=== PATIENT | male | born 1995 | race Two or more races ===

== ENCOUNTER 2018-05-05 17:41 | Emergency (ER) | payer OTHER ==
--- NOTE | 2018-05-05 21:03 | ED Physician Documentation ---
PD HPI MALE - Stated complaint Stated Complaint: MALE - Chief complaint Chief Complaint: Abd Pain - History obtained from History obtained from: Patient - History of Present Illness Timing - onset: Today Timing - details: Abrupt onset Associated symptoms: Testiclar pain (went to sit down in chair and felt a pop feeling left testicle with pain. No lifting. Had been feeling okay prior. Has pain with movement of the lest scrotum, walking and touching.). No: Dysuria, Urinary frequency, Scrotal swelling PD HPI MALE CONTRIB FACTORS: No: Exposed to STD Similar symptoms before: Has not had sx before Recently seen: Not recently seen Review of Systems Constitutional: denies: Fever, Chills Nose: denies: Rhinorrhea / runny nose, Congestion Throat: denies: Oral lesions / sores, Sore throat GI: denies: Abdominal Pain, Nausea, Vomiting, Diarrhea : denies: Dysuria, Frequency, Discharge Skin: denies: Rash, Lesions PD PAST MEDICAL HISTORY - Past Medical History Cardiovascular: None Respiratory: None : None - Present Medications Home Medications: Ambulatory Orders Medication Instructions Recorded Confirmed Hydrocodone/Acetaminophen [[place] 1 each PO Q6H PRN #15 tablet 05/05/18 5-325 Tablet] Naproxen 375 mg PO BID #20 tablet 05/05/18 - Allergies Allergies/Adverse Reactions: Allergies Allergy/AdvReac Type Severity Reaction Status Date / Time amoxicillin Allergy Unknown Verified 05/05/18 17:59 Penicillins Allergy Unknown Verified 05/05/18 17:59 PD ED PE NORMAL - Vitals Vital signs reviewed: Yes - General General: Alert and oriented X 3, Well developed/nourished, Other (appears in pain with walking and scrotal movement.) - Cardiac Cardiac: RRR, No murmur - Respiratory Respiratory: Clear bilaterally - Abdomen Abdomen: Normal bowel sounds, Soft, Non tender, Non distended - Male Male : Other (sanding position, he has right testicle lower than left, but they have normal lie position. Tenderness left testicle to palpation. No scrotal swelling noted. Cremaster reflex both sides present, with pain elicited on the left. There is tenderness above the testicle as well on the left. No obvious masses. ) - Rectal Rectal: Deferred Results - Vitals Vitals: Oxygen O2 Source Room air - Rads (name of study) testicle U/S Radiology: Prelim report reviewed (normal flow both sides. no masses nor swelling. ) PD MEDICAL DECISION MAKING - ED course Complexity details: re-evaluated patient (U/S showed flow both testicles and no masses. ), considered differential (abrupt onset pain as he sat down, so consid er strain of the supporting structures with concern for torsion. He does have cremaster reflex but causes pain. Has normal lie on exam. ), d/w patient Departure - Departure Disposition: 01 Home, Self Care Clinical Impression: Testicular pain, left Condition: Stable Record reviewed to determine appropriate education?: Yes Instructions: ED Testicular Pain [facility] Follow-Up: [facility] [Provider Group] Prescriptions: Hydrocodone/Acetaminophen [[place] 5-325 Tablet] 1 each PO Q6H PRN #15 tablet PRN Reason: Pain Naproxen 375 mg PO BID #20 tablet Comments: I presume you have a strain and inflammation of the supporting structures for the testicle such as the epididymis. The ultrasound did not show any acute abnormality and did show good blood flow to both testicles. Use some anti- inflammatories such as naproxen or ibuprofen twice daily for the next several days to week. Add Tylenol or hydrocodone if needed for pain. Minimal activity for the next couple of days. Some scrotal support may be helpful. Follow-up with your primary in the next 1-2 days if not improved. Forms: Activity restrictions Discharge Date/Time: 05/06/18 00:30
[2018-05-05] MEDS ORDERED: KETOROLAC 60 MG/2 ML VIAL IVP STA (21:31)
[2018-05-05] MEDS ORDERED: ONDANSETRON 4 MG/2 ML VIAL IVP STA (21:31)
[2018-05-05] MEDS ORDERED: SODIUM CHLORIDE 0.9% 1,000 ML IV ONE (21:31)
[2018-05-05] MEDS ORDERED: MORPHINE 10 MG/ML VIAL IVP STA (21:31)
[2018-05-05] MEDS ORDERED: HYDROcod/ACET 5/325 Prepack 4 PO STA (23:58)
--- NOTE | 2018-05-05 23:58 | Ultrasound Report ---
Reason: left testicle abrupt pain today Procedure Date: 05/05/2018 Accession Number: [id number] / [id number] Procedure: US - Testicle w/Doppler Limited CPT Code: FULL RESULT: EXAM: SCROTAL ULTRASOUND EXAM DATE: 05/05/2018 11:17 PM. CLINICAL HISTORY: Abrupt left testicle pain today. COMPARISON: None. TECHNIQUE: Real-time scanning was performed with static images obtained. Color-flow images were utilized. FINDINGS: Right: Testis: 4.3 x 2.5 x 2.6 cm. Normal size and echotexture. No mass, calcification, or abnormal blood flow. Epididymis: Normal size and echotexture. No solid-appearing mass or abnormal blood flow. Incidental 3 mm cyst. Hydrocele: None. Varicocele: None. Left: Testis: 3.7 x 2.0 x 3 cm. Normal size and echotexture. No mass, calcification, or abnormal blood flow. Epididymis: Normal size and echotexture. No solid-appearing mass or abnormal blood flow. Hydrocele: Trace. Varicocele: None. Other: None. IMPRESSION: Negative scrotal ultrasound. RADIA
[2018-05-06 00:29] VITALS: BP 131/68
== END 2018-05-06 00:30 | disposition home or self-care (01) ==
LOC: ED 17:41
DX: N50.812 Left testicular pain (principal)
CPT/HCPCS: 76870; 93976; 96361; 96374; 96375; 99283; 99284

== ENCOUNTER 2018-05-12 11:10 | Emergency (ER) | payer OTHER ==
--- NOTE | 2018-05-12 12:36 | ED Physician Documentation ---
PD HPI MALE - Stated complaint Stated Complaint: L HIP PX - Chief complaint Chief Complaint: General - History obtained from History obtained from: Patient - History of Present Illness Timing - onset: How many weeks ago (1) Timing - duration: Weeks (1) Timing - details: Abrupt onset, Still present, Waxing and waning Associated symptoms: Testiclar pain, Abdominal pain. No: Dysuria, Urinary frequency, Hematuria, Discharge, Genital sore / lesion PD HPI MALE CONTRIB FACTORS: Sexually active Recently seen: Clinic (He says he was seen in [facility] yesterday and had repeat U/S which was normal again (small varicocele per patient). Still having the pain in testicle, and now upper scrotum and into inguinal area.), Emergency Dept (seen a week go after onset with normal UA and testicular U/S.) Review of Systems Constitutional: denies: Fever, Chills Throat: denies: Sore throat GI: denies: Nausea, Vomiting, Diarrhea : denies: Dysuria, Frequency, Discharge Skin: denies: Rash, Lesions PD PAST MEDICAL HISTORY - Past Medical History Cardiovascular: None Respiratory: None : None - Past Surgical History Past Surgical History: No - Present Medications Home Medications: Ambulatory Orders Medication Instructions Recorded Confirmed Hydrocodone/Acetaminophen [[place] 1 each PO Q6H PRN #15 tablet 05/05/18 5-325 Tablet] Naproxen 375 mg PO BID #20 tablet 05/05/18 Doxycycline Hyclate 100 mg PO BID #20 capsule 05/12/18 Naproxen 375 mg PO BID #20 tablet 05/12/18 Tramadol HCl 50 mg PO Q6H PRN #15 tablet 05/12/18 - Allergies Allergies/Adverse Reactions: Allergies Allergy/AdvReac Type Severity Reaction Status Date / Time amoxicillin Allergy Unknown Verified 05/12/18 12:41 Penicillins Allergy Unknown Verified 05/12/18 12:41 - Social History Does the pt smoke?: No Smoking Status: Never smoker Does the pt drink ETOH?: No Does the pt have substance abuse?: No - Immunizations Immunizations are current?: Yes - POLST Patient has POLST: No PD ED PE NORMAL - Vitals Vital signs reviewed: Yes - General General: Alert and oriented X 3, Well developed/nourished - Abdomen Abdomen: Soft, Non tender - Male Male : Other (normal lie with right testicle lower. Cremaster reflex present and causes some pain. Posterior testicle and up epididymal area with some tenderness. Anterior testicle not tender. Mild inguinal lymph node, slight tender. No rash nor sores. Penis and meatus are normal. ) - Rectal Rectal: Deferred - Back Back: No CVA TTP Results - Vitals Vitals: Vital Signs - 24 hr 05/12/18 05/12/18 11:21 14:08 Temperature 36.8 C 36.7 C Heart Rate 58 L 60 Respiratory 16 16 Rate Blood Pressure 121/64 118/60 O2 Saturation 99 99 Oxygen O2 Source Room air PD MEDICAL DECISION MAKING - ED course Complexity details: reviewed old records, considered differential (has had 2 U/Ss with normal flow. Initial presentation a week ago was abrupt with sitting down so presumed strain of structures. Tender along epididymis now and with small inguinal node. So can treat as possible infectious and continue NSAIDs. ), d/w patient Departure - Departure Disposition: 01 Home, Self Care Clinical Impression: Testicular pain, left, Epididymitis, left Condition: Stable Record reviewed to determine appropriate education?: Yes Instructions: ED Epididymitis Follow-Up: [facility] [Provider Group] Prescriptions: Doxycycline Hyclate 100 mg PO BID #20 capsule Naproxen 375 mg PO BID #20 tablet Tramadol HCl 50 mg PO Q6H PRN #15 tablet PRN Reason: Pain Comments: There is more epididymal tenderness today compared to the other day. We can repeat the anti-inflammatories and have a different pain medicine. I would add antibiotic to doxycycline twice daily for 10 days for potential infection. Rest for today and tomorrow. Recheck if not improved over the next few days. Forms: Activity restrictions Discharge Date/Time: 05/12/18 14:08
[2018-05-12] MEDS: DOXYCYCLINE 100 MG TABLET PO STA (13:21)
[2018-05-12] MEDS: NAPROXEN 250 MG TABLET PO STA (13:21)
[2018-05-12] MEDS: ACETAMINOPHEN 325 MG TABLET PO STA (13:21)
[2018-05-12 14:09] VITALS: BP 118/60
== END 2018-05-12 14:08 | disposition home or self-care (01) ==
LOC: ED 11:10
DX: N45.1 Epididymitis (principal)
CPT/HCPCS: 99283

== ENCOUNTER 2020-03-10 10:03 | Outpatient (CLI) | payer OTHER ==
[2020-03-10 10:59] VITALS: BP 118/68
--- NOTE | 2020-03-10 10:59 | SLEEP CARE CONSULTATION ---
Information from patient questionnaire entered by Renae Mcguire. I have reviewed and concur with the information entered by Renae Mcguire. This document represents the service I personally performed and the decisions made by me, Chey Ashby ARNP. History of Present Illness Service Date and Time: 03/10/2020 1003 Reason for Visit: New patient Chief Complaint: reports: Insomnia (easy to go to sleep but cannot stay asleep), Unrefreshed sleep, Snoring (only when he is exhausted), Excessive daytime sleepiness, Fatigue, Frequent awakenings at night. denies: Observed pauses in breathing Date of Onset: 02/2018 Usual bedtime: 2230 Time it takes to fall asleep: 30 minutes Snores at night: Yes (only when I'm exhausted) Observed to quit breathing while asleep: No Sleeps alone due to snoring: No Number of times waking at night: 5-7 Reasons for waking at night: reports: Pain, Other (just waking up every 30 minutes for no apparent reason). denies: Choking, Snoring, Gasping for air, Bathroom Toss, Turn, or Twitch while sleeping: Yes Recalls having dreams: Yes Usually gets out of bed at: [id number] Feels refreshed in the morning: No Morning headache: Yes (daily, last about 2 hours without meds) Sleepy or fatigued during the day: Yes Ever fallen asleep while driving: No Takes day naps: No Dreams during day naps: Yes Additional HPI information: I had the pleasure of seeing LUIS LOWERY today regarding the possibility of him having a sleep disorder. His current complaints are ul . Going on for about a couple years. once he switched to day he thought it would resolve but hasnt gone away. He is on days now. The patient tells me that he normally goes to bed around 10 pm, and it takes him approximately 30 minutes to hour to fall asleep. He has not been told that he snores loudly and irregularly at night. He has not been observed to stop breathing in his sleep. He can recall waking up on the average of 5-7 times during the night about 30 minutes to hourly. Most of the time he wakes up for unknown reasons. He has not awakened for his own snoring, choking, and having to gasp for air. There is a lot of tossing and turning in his sleep. Generally there is no recollection of dreams only when waking up. He usually wakes up at [id number] and does not feel refreshed. He usually does have a morning headache. During the day he complains of feeling sleepy and fatigued. He has never fallen asleep while driving nor has any accident due to sleepiness. He usually does not take naps during the day. There is no somniloquy (sleep talking) or somnambulism (sleep walking). He has experienced sleep paralysis once when on Ambien. He reports having impaired concentration during the day. His father has always snored and is now on a machine when sleeping. - Parasomnia Symptoms Ever been unable to move upon waking from sleep: Yes (once when he was on Ambien) Walks in sleep: No Talks in sleep: No Ever acted out dreams in sleep: No Ever felt weak in the knees when startled or emotional: No Bothered by creepy, crawly, restless sensations in legs: No Problems with memory or concentration: Yes (concentration) Subjective Initial [place] Sleepiness Scale score: 11 (in 2020) Past Medical History Past Medical History: reports: Anxiety (no treatment or diagnosis of this). denies: Hypertension, Claustrophobia, Congestive Heart Failure, Diabetes, Coronary Heart Disease, Arrythmia, Hypothyroidism, Anemia, Impotence, Depression, Mood disorder, GERD, Attention deficit Social History The patient's occupation is active . Patient is Single and lives in [place]. Have you smoked in the past 12 months: No Alcohol use: No Caffeine use: No Family History Family history of sleep disordered breathing: Yes Family Hx Sleep Apnea: Father: Snoring, Sleep apnea - Treated Allergies and Home Medications Drug allergies reviewed: Yes (amoxicillin/penicillin) Home medication list reviewed: Yes (no daily medications) Review of Systems Weight gain over past 5 years: 30 Weight loss over past 5 years: 35 during deployment Cardiovascular: denies: high blood pressure, palpitations, chest pain, irregular heart rate or pulse, leg or foot swelling Respiratory: denies: shortness of breath Gastrointestinal: reports: heartburn. denies: difficulty swallowing Urinary: denies: impotence Neurological: reports: headaches, gait or balance problems (*balance; he stumbles a lot). denies: seizure, head trauma, speech dysfunction Psychiatric: reports: anxiety. denies: Attention Deficit Hyperactivity, depression, mood disorder, claustrophobia Ear/Nose/Throat: reports: wisdom teeth removed. denies: nasal congestion, sinus problems, nose bleeds, dry mouth/throat, injury to nose, tonsillectomy Endocrine: denies: thyroid disease Musculoskeletal: reports: joint pain, back pain Immunologic: reports: rash, itching, allergies to food or environment (shellfish) Physical Exam Blood Pressure: 118/68 Cuff size: long Heart Rate: 80 O2 Saturation: 98 Height: 5 ft 11 in Weight: 183 lb Body Mass Index: 25.5 BMI Classification: Overweight Neck circumference: 15.5 (inches) HEENT: No craniofacial malformation Nostrils: patent to airflow Turbinates: normal Septum: midline Mouth and throat: narrow oropharynx Soft palate: normal Hard palate: normal Uvula: normal Uvula visualization: 50% Mallampati Class II Tongue: normal in size Tonsils: 2+ Chin and jaw: normal size and position Neck: normal w/o lymphadenopathy or thyromegaly Heart: regular rate and rhythm Lungs: clear bilaterally Impression and Plan 1. Suspected Obstructive Sleep Apnea-Hypopnea Syndrome, as suggested by a history of insomnia, snoring when excessively tired, morning headache, frequent awakening during the night, unrefreshed sleep, cognitive impairment, and excessive daytime sleepiness. I reviewed with patient that a narrow oropharynx and obesity are common predisposing factors for obstructive sleep apnea-hypopnea syndrome. Patient has difficulty staying asleep after getting to sleep with 5-7 nightly awakenings. He has tried Ambien in the past to help him stay asleep but he had vivid dream and he no longer takes this or any other medication for sleep. 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 But he is on a day shift now and has enough in-bed time to get adequate sleep if he could stop awakening so much during the night. He is unsure of why he is awakening. He does have a narrow oropharynx and a father who is being treated for sleep apnea with a machine. I recommend proceeding to polysomnography to confirm or rule out the diagnosis and to assess severity. If the patient has significant sleep disordered breathing, a manual CPAP titration study will also be performed to find the optimal treatment pressure. I informed the patient of what the sleep studies involve and after some discussion, obtained agreement to proceed. The pathophysiology of obstructive sleep apnea-hypopnea syndrome was discussed with the patient and health risks of cardiovascular and cerebrovascular disease if not treated. Risks of drowsy driving discussed in detail and patient advised to avoid long distance driving and to pulley man at the first sign of drowsiness. Patient agreed to plan. * Schedule polysomnography +- manual CPAP titration study. * Avoid long distance driving or driving when feeling sleepy. * Avoid alcohol, sedative and muscle relaxant around bedtime. * Attempt to lose weight. * Review instructions provided by trained office staff on how to prepare for the sleep study. * Return for follow-up after sleep study completed. Visit Type: In Office Time Spent with Patient (minutes): 33 Provider Statement: I spent 100% of the Face to Face Visit with the patient with greater than 50% spent counseling the patient and coordination of care.
== END 2020-03-10 10:04 | disposition home or self-care (01) ==
LOC: SC 10:03
PROVIDERS: ATTEND Nurse Practitioner Family
DX: R06.83 Snoring (principal); G47.8 Other sleep disorders; G47.10 Hypersomnia, unspecified; E66.3 Overweight; Z68.25 Body mass index [BMI] 25.0-25.9, adult
CPT/HCPCS: 99204; 99212

== ENCOUNTER 2020-04-13 20:11 | Outpatient (CLI) | payer OTHER | END 2020-04-13 20:12 | disposition home or self-care (01) | LOC: SC 20:11 | PROVIDERS: ATTEND Nurse Practitioner Family | DX: R06.83 Snoring (principal); G47.10 Hypersomnia, unspecified; G47.8 Other sleep disorders; E66.3 Overweight | CPT/HCPCS: 95810 ==

== ENCOUNTER 2020-04-20 15:42 | Outpatient (CLI) | payer OTHER ==
--- NOTE | 2020-04-20 15:12 | SLEEP CARE CONSULTATION ---
Information from patient questionnaire entered by Renae Mcguire. I have reviewed and concur with the information entered by Renae Mcguire. This document represents the service I personally performed and the decisions made by , Chey Ashby ARNP. History of Present Illness Service Date and Time: 04/20/2020 1500 Initial [place] Sleepiness Scale score: 11 Current [place] Sleepiness Scale score: 8 Additional HPI information: LUIS LOWERY returns via Teleheatlh video for follow up and results of the recently performed polysomnography. The patient was informed of the following findings: No significant sleep disordered breathing, normal sleep study. I explained the pathophysiology behind obstructive sleep apnea. Patient does not have sleep apnea and was advised how weight gain could increase the risk of developing sleep apnea in the future. Patient has light intermittent snoring. Snoring can be reduced by weight loss. Weight loss is best achieved with diet consult. He does not snore unless he is extremely exhausted and then is able to sleep. He can go to sleep within 30 minutes but has more problems with staying asleep. 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 He has tried 2 different medication for sleep but cannot remember thier names. He has also tried Ambien, which caused vivid dreams and nightmares as well as other side effects during the day. Patient was cautioned about risks of drowsy driving until sleepiness symptoms resolve. Sleep Study - Results Type of Sleep Study: Polysomnography Year and Where: 03/2020 [facility] Polysomnography/Home Sleep Study results: IMPRESSION: The quality of the study is good. The patient had poor sleep efficiency due to prolonged awakenings during the night. The sleep architecture was abnormal for sleep fragmentation and lack of REM sleep. Respiratory monitoring showed no sleep disordered breathing (AHI = 0.0) associated hypoxia (leonardo oxygen saturation of 93%). The patient slept adequately in supine position (supine AHI = 0.0; non-supine = 0.00). No audible snore. There was no significant periodic leg movement of sleep. Cardiac rhythm was normal sinus rhythm without significant arrhythmia. No abnormal behavior (parasomnia) observed during the night. Allergies and Home Medications Drug allergies reviewed: Yes (penicillin, amoxicillin) Home medication list reviewed: Yes (no changes) Review of Systems Review of systems same as previous: Yes (no changes) Physical Exam Vital signs obtained and entered by: Telehealth visit, no vitals obtained Height: 5 ft 11 in Impression and Plan 1. Insomnia with difficulty maintaining sleep, unspecified. Insomnia is generally caused by an irregular sleep schedule, spending too much time in bed, napping, caffiene, electronics, lack of a relaxing bedtime ritual and clock watching. Other factors can include anxiety/depression, pain, medications, and obstructive sleep apnea. He has been trying over the last year with his [facility] physician to resolve his issues with insomnia and fatigue. I advised him to come in for further evaluation of his insomnia by our administrative medical director Dr. Aquino and he voiced agreement with plan. He was advised that we will send him sleep diary pages for him to complete for at least 2 weeks prior to his appointment. He voiced understanding. He was advised to be cautious about driving until his sleepiness resolves. * Follow up for evaluation of his insomnia * Keep a sleep diary prior to appointment * Avoid alcohol consumption near bedtime * The patient is cautioned about driving until sleepiness is completely resolved. * Return for follow up in next 1-2 months for insomnia evaluation. Follow up with Sleep Care in: 1-2 months (with Dr Aquino for insomnia evaluation) Visit Type: Telehealth Video Video Type: Doximity Patient Location: Home Location of Provider: Home Patient agrees and consents to this telehealth visit type: Yes Patient agrees to have their insurance billed: Yes Time Spent with Patient (minutes): 20 Provider Statement: I spent 100% of the Telehealth Video Call with the patient with greater than 50% spent counseling the patient and coordination of care.
== END 2020-04-20 15:43 | disposition home or self-care (01) ==
LOC: SC 15:42
PROVIDERS: ATTEND Nurse Practitioner Family
DX: G47.00 Insomnia, unspecified (principal)

== ENCOUNTER 2020-05-09 15:43 | Outpatient (CLI) | payer OTHER ==
--- NOTE | 2020-05-09 23:12 | SLEEP CARE CONSULTATION ---
Information from patient questionnaire entered by Alena Palomares. I have reviewed and concur with the information entered by Alena Palomares. This document represents the service I personally performed and the decisions made by me, Amber Lino MD, [facility]. History of Present Illness Service Date and Time: 05/09/2020 1543 Reason for follow up: one month (for insomina) Year and Where: 2019 - [facility] Sleep Type of Sleep Study: Polysomnography (negative) HPI additional information: To minimize the risk of COVID-19 exposure, the patient has requested and consented to this telephone visit. The patient also agrees to having his insurance billed. HPI: Mr. Garza today regarding the possibility of him having a sleep disorder. As you know, he is a 24 year old gentleman who complains of insomnia since he had an accident at work and hurt his back. 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 His shift changes about every two months. The patient tells me that he normally goes to bed around midnight, and it takes him at least 30 minutes to fall asleep. He does not snore. He tried Ambien and trazodone, both causing groggy in the morning. He can recall waking up on the average of 3 - 4 times during the night. In the morning he usually gets up out of the bed around 11 a.m. not feeling refreshed nor rested. He feels sleepy during the day but does not take a nap. His recent in-laboratory polysomnography showed poor sleep efficiency due to sleep onset insomnia and awakenings during the night. No sleep-disordered breathing or periodic leg movement of sleep. Subjective Initial [place] Sleepiness Scale score: 11 (in 2020) Allergies and Home Medications Drug allergies reviewed: Yes Home medication list reviewed: Yes Review of Systems Review of systems same as previous: Yes Physical Exam Height: 5 ft 11 in Impression and Plan IMPRESSION: 1. Insomnia, with frequent awakenings during the night complicated by shift work sleep disorder. The reported bedtime and wakeup time suggest excessive time spent in bed of 11 hours. The in-laboratory polysomnography did not show any sleep disrupting conditions but he did not sleep much. Therefore, a home sleep apnea test (HSAT) will be ordered. With more sleep at his own schedule, he might exhibit sleep-disordered breathing. Plan: 1. Schedule a home sleep apnea test (HSAT) 2. Avoid working shift if possible. 5. Return in 1 to 2 weeks after the study to discuss results. Visit Type: Telehealth Video Video Type: Doximity Patient Location: Home Location of Provider: Home Patient agrees and consents to this telehealth visit type: Yes Patient agrees to have their insurance billed: Yes Time Spent with Patient (minutes): 15 Provider Statement: I spent 100% of the Telehealth Video Call with the patient with greater than 50% spent counseling the patient and coordination of care.
== END 2020-05-09 15:44 | disposition home or self-care (01) ==
LOC: SC 15:43
PROVIDERS: ATTEND Internal Medicine Pulmonary Disease
DX: G47.00 Insomnia, unspecified (principal); G47.26 Circadian rhythm sleep disorder, shift work type

== ENCOUNTER 2020-06-12 08:03 | Outpatient (CLI) | payer OTHER | END 2020-06-12 08:04 | disposition home or self-care (01) | LOC: SC 08:03 | PROVIDERS: ATTEND Internal Medicine Pulmonary Disease | DX: R06.83 Snoring (principal); G47.10 Hypersomnia, unspecified; G47.8 Other sleep disorders; E66.3 Overweight; Z68.25 Body mass index [BMI] 25.0-25.9, adult | CPT/HCPCS: 95806 ==

== ENCOUNTER 2020-06-19 10:16 | Outpatient (CLI) | payer OTHER ==
--- NOTE | 2020-06-19 14:00 | SLEEP CARE CONSULTATION ---
Information from patient questionnaire entered by Alena Palomares. I have reviewed and concur with the information entered by Alena Palomares. This document represents the service I personally performed and the decisions made by me, Amber Lino MD, [facility]. History of Present Illness Service Date and Time: 06/19/2020 1016 Initial [place] Sleepiness Scale score: 11 (in 2019) Additional HPI information: To minimize the risk of COVID-19 exposure, the patient has requested and consented to this video telemedicine visit. The patient also agrees to having his insurance billed. HPI: Mr. Garza was called for a follow up of the home sleep apnea test (HSAT) he had on 05/14/2020. The test showed the following. No significant sleep disordered breathing with an AHI of 3.9/hr and leonardo SaO2 of 90%. During the study, the patient had 11 apneas (9 obstructive, 2 central, 0 mixed) and 7 hypopneas. The longest episode lasted 43.0 seconds. The few respiratory events occurred almost exclusively during supine sleep (supine AHI was 21.2 and non-supine, 3.34). The patient was informed of these findings. I explained to him that the test was negative for significant sleep disordered breathing. However, he did have a few respiratory events during supine sleep. The patients main complaint is insomnia where he reports waking up frequently during the night. He used to work rotating shift. He also spends a lot of time in bed. When he was last seen in April, he went to bed at midnight and does not get out of bed until 11 am. 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 He continues to complains of insomnia. Sleep Study - Results Type of Sleep Study: Home sleep study Year and Where: 2019 - [facility] Sleep, poly-negative Allergies and Home Medications Drug allergies reviewed: Yes Home medication list reviewed: Yes Review of Systems Review of systems same as previous: Yes Physical Exam Height: 5 ft 11 in Impression and Plan IMPRESSION: 1. Insomnia, without clear sleep disrupting conditions. As mentioned on his previously clinic visit note, this was felt to be a combination of excessive time spent in bed and shift work sleep disorder. The in-laboratory polysomnography did not show any sleep disrupting conditions but he did not sleep much. His recent home sleep apnea test (HSAT) did not show significant sleep disordered breathing. I recommend he try to maintain a regular sleep-wake schedule by waking up the same time every day (weekends included) and allow no more than 8 hours for sleeping each night. Because he appears to have difficulty coping with evening and night shifts, I recommend he be put on a regular dayshift. PLAN: 1. Maintain a regular wake up time and spend no more than 8 hours in bed at night. Avoid naps. 2. Avoid shift work. 3. Return for a follow up at the sleep clinic on as needed basis. Visit Type: Telehealth Video Video Type: Doximity Patient Location: Home Location of Provider: Office Patient agrees and consents to this telehealth visit type: Yes Patient agrees to have their insurance billed: Yes Time Spent with Patient (minutes): 15 Provider Statement: I spent 100% of the Telehealth Video Call with the patient with greater than 50% spent counseling the patient and coordination of care.
== END 2020-06-19 10:17 | disposition home or self-care (01) ==
LOC: SC 10:16
PROVIDERS: ATTEND Internal Medicine Pulmonary Disease
DX: G47.00 Insomnia, unspecified (principal)

== ENCOUNTER 2021-01-11 08:29 | Outpatient (CLI) | payer OTHER ==
--- NOTE | 2021-01-11 09:13 | SLEEP CARE CONSULTATION ---
Information from patient questionnaire entered by Elaine Mcadams. I have reviewed and concur with the information entered by Elaine Mcadams. This document represents the service I personally performed and the decisions made by me, Chey Ashby ARNP. History of Present Illness Service Date and Time: 01/11/2021 0829 Reason for follow up: other (7 month insomnia) Year and Where: 2019 - [facility] Sleep, poly-negative Type of Sleep Study: Home sleep study HPI additional information: LUIS LOWERY returns today for 7 month follow-up on insomnia. He has times that he will not be able to sleep for about up to 3 days. He will lay in bed but be unable to sleep, he may doze off and wake up within a half hour and then repeats through the night. He does not feel that he gets but a couple hours of sleep nightly. He will intermittently "crash" and sleep through a day, then restart the cycle again. When he is laying in bed he does not feel he is really thinking about any worries or stresses. He will check the clock regularly to see when he needs to get up but does not feel any anxiety about this. 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 He just got back 2 days ago. He states that now he should be on a day shift with a set schedule until February. He has been on Ambien and trazodone to help with sleep in the past. He had side effects from the Ambien, groggy feeling in the morning. He felt the trazodone was hit or miss on working for him. He has tried OTC Melatonin 5 mg occasionally which he felt did help him fall asleep but will not keep him sleeping through the night. Subjective Initial [place] Sleepiness Scale score: 11 (in 2019) Current [place] Sleepiness Scale score: 2 Allergies and Home Medications Home medication list reviewed: Yes (no changes) Review of Systems Review of systems same as previous: Yes (no changes) Physical Exam Heart Rate: 71 O2 Saturation: 96 Height: 5 ft 11 in Weight: 191 lb (with boots and uniform) Body Mass Index: 26.6 BMI Classification: Overweight Impression and Plan 1. Insomnia, unspecified. Insomnia may be related to shift work disorder as mentioned by Dr. Aquino at his last visit. 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 He just got back and will be on a day schedule until February. I counseled him try regulating his schedule over the next couple months before we explore any medication options. He voiced agreement. First I counseled the patient on the importance of a regular sleep schedule, starting with the wake time. I explained the homestatic sleep drive and how maintaining a regular wake time will allow the patient to be tired enough to sleep 15-16 hours later. By waking at the same time, the patient will also feel more alert. Additionally too much time spent in bed can cause more sleep disruption as most people only need 7-9 hours of sleep. Thus patient advised to restrict time in bed to 7-8 hours. Naps are to be avoided unless overcome by sleepiness. Then naps are to be restricted to one hour and before 3 pm so as not to interfere with nighttime sleep. The alarm clock should be set and the face covered to prevent clock watching if awakened during the night. Knowing the time can cause anxiety and increase alertness and thinking about sleep time and preparation for the next day. Instead if awakened after sleep, the patient is to position for comfort or use bathroom and return to sleep. If unable to go to sleep in an estimated 20 minutes of more, it is advised to leave the bedroom and engage in a quiet activity until sleepy enough to return to bed. This is to be repeated as often as necessary to associate the bed with sleep and not frustration to get to sleep. Patient to try to get on regular sleep schedule and limit time in bed Patient to not look at clock and rely on alarm for get up time The patient is again cautioned about driving until sleepiness completely resolves. Return in 3 months for follow up with Dr. Aquino. Visit Type: In Office Time Spent with Patient (minutes): 29 Provider Statement: I spent 100% of the Face to Face Visit with the patient with greater than 50% spent counseling the patient and coordination of care.
== END 2021-01-11 08:30 | disposition home or self-care (01) ==
LOC: SC 08:29
PROVIDERS: ATTEND Nurse Practitioner Family
DX: G47.00 Insomnia, unspecified (principal)
CPT/HCPCS: 99212; 99213

== ENCOUNTER 2021-04-09 07:55 | Outpatient (CLI) | payer OTHER ==
--- NOTE | 2021-04-09 13:03 | SLEEP CARE CONSULTATION ---
Information from patient questionnaire entered by Renae Mcguire. I have reviewed and concur with the information entered by Renae Mcguire. This document represents the service I personally performed and the decisions made by me, Amber Lino MD, [facility]. History of Present Illness Service Date and Time: 04/09/2021 0755 AHI: 3.9 Reason for follow up: three month (Insomnia) Prior sleep studies: Yes Year and Where: 2019 - [facility] Type of Sleep Study: Polysomnography HPI additional information: Mr. Garza returns for a follow up of insomnia. His last visit was a telephone encounter last year where I went over the home sleep apnea test (HSAT) results. He did not have significant sleep disordered breathing. His in- laboratory polysomnography earlier was equivocal because he did not sleep much. He continues to complain of insomnia where he wakes up several times during the night and lies awake. He works from 2 pm to 10 pm 5 days a week. He goes to bed at 11:30 pm and falls asleep quickly. He gets up every day at 8 am to go to the gym. He is not sleepy during the day. His [place] Sleepiness Scale score is only 3. On weekends, he wakes up the same time but goes back to bed at 2 pm and tries to sleep until the next morning. Sleep Study - Results Type of Sleep Study: Home sleep study Prior sleep studies: Yes Year and Where: 2019 [facility] Subjective Initial [place] Sleepiness Scale score: 11 (in 2019) Current [place] Sleepiness Scale score: 5 Allergies and Home Medications Drug allergies reviewed: Yes Home medication list reviewed: Yes Review of Systems Review of systems same as previous: Yes Physical Exam Height: 5 ft 11 in Weight: 183 lb Body Mass Index: 25.5 BMI Classification: Overweight Impression and Plan IMPRESSION: 1. Insomnia, without clear sleep disrupting conditions based on the home sleep apnea test (HSAT) and in-laboratory polysomnography he had last year. As mentioned on his previously clinic visit note, this was felt to be a combination of excessive time spent in bed and shift work sleep disorder. On week nights, he allows 8.5 hours for sleeping and on weekends, he goes to bed at 2 pm, partly because he is bored. The low [place] Sleepiness Scale score is confirms that he has been getting adequate sleep all along. His goal, therefore, is not to get more sleep but spend less time lying awake. I advised him to go to bed an hour later at 12:30 am every day and not to try to take naps on the weekends. PLAN: 1. Maintain a regular wake up time and spend no more than 7.5 hours in bed at night. Avoid naps. 2. Stay active on weekends and do not go to bed until his usual time at 12:30 am. 3. Keep a sleep diary. I gave him one month worth of the sleep log. 4. Return for follow up in one month to review the sleep log. Follow up with Sleep Care in: 1-2 months Visit Type: In Office Time Spent with Patient (minutes): 20 Provider Statement: I spent 100% of the Face to Face Visit with the patient with greater than 50% spent counseling the patient and coordination of care.
== END 2021-04-09 07:56 | disposition home or self-care (01) ==
LOC: SC 07:55
PROVIDERS: ATTEND Internal Medicine Pulmonary Disease
DX: G47.00 Insomnia, unspecified (principal)
CPT/HCPCS: 99212; 99213